=== PATIENT | female | born 1995 | race Caucasian/White ===

== ENCOUNTER 2016-09-01 19:47 | Emergency (ER) | payer OTHER ==
[2016-09-01 22:18] LABS: BASOPHIL % 0.5 % (0-2); PLATELET COUNT 396 x10^3mcL (130-400); RED CELL DISTRIBUTION WIDTH 13.6 % (11.5-14.5)
[2016-09-01 22:26] LABS: CALCIUM 8.6 mg/dL (8.5-10.1); CARBON DIOXIDE 25.4 mmol/L (21-32); CHLORIDE SERUM 103 mmol/L (98-107); CREATININE SERUM 0.8 mg/dL (0.6-1.0); GFR1 > 60 mL/min; GLUCOSE SERUM 92 mg/dL (74-106); POTASSIUM SERUM 3.3 mmol/L (3.5-5.1); SODIUM SERUM 139 mmol/L (136-145)
[2016-09-01 22:36] LABS: ALKALINE PHOSPHATASE 80 U/L (46-116); ALT/SGPT 10 U/L (14-59); AST/SGOT 8 U/L (15-37); BILIRUBIN TOTAL 0.8 mg/dL (0.20-1.00); C REACTIVE PROTEIN 4.1 mg/dL (<=0.9); TOTAL PROTEIN, SERUM 7.3 g/dL (6.4-8.2)
[2016-09-01 22:37] LABS: ALBUMIN 3.3 g/dL (3.4-5.0)
[2016-09-01 22:38] LABS: CK-MB < 0.5 ng/mL (0-3.6); CREATINE KINASE 50 U/L (26-192); FREE T4 1.06 ng/dL (0.76-1.46); FREE THYROXINE INDEX 1.8 ug/dL (1.4-4.5); T4(THYROXINE) 5.4 ug/dL (4.7-13.3)
[2016-09-01 22:44] LABS: T3 TOTAL 0.78 ng/mL
[2016-09-01 22:53] LABS: microscopic required? YES; urine erythrocyte NEGATIVE (NEGATIVE)
[2016-09-01 23:05] LABS: ERYTHROCYTE SED RATE 57 mm/hr (0-20)
[2016-09-02 01:37] VITALS: BP 124/77
== END 2016-09-02 01:37 | disposition home or self-care (01) ==
LOC: ED 19:47
PROVIDERS: Specialist
DX: R33.9 Retention of urine, unspecified (principal); J45.909 Unspecified asthma, uncomplicated; I10 Essential (primary) hypertension
CPT/HCPCS: 83880; 84439; J1885; J7030; Q0092